=== PATIENT | female | born 1990 | race Two or more races ===

== ENCOUNTER 2019-05-18 15:09 | Emergency (ER) | payer BC, MEDICAID ==
[~2019-05-18] VITALS: Ht 152.4 cm; Wt 81.6 kg
[2019-05-18 15:49] VITALS: BP 147/94
[2019-05-18] MEDS ORDERED: methylPREDNISolone SOD SUCC 125 MG/2 ML VL IM ONE (16:15)
== END 2019-05-18 16:46 | disposition home or self-care (01) ==
LOC: ER 15:09
DX: J04.0 Acute laryngitis (principal); H60.92 Unspecified otitis externa, left ear; J02.9 Acute pharyngitis, unspecified
CPT/HCPCS: 71046; 96372; 99283; J2930